=== PATIENT | male | born 1965 | race Caucasian/White ===

== ENCOUNTER 2018-04-07 14:21 | Outpatient (CLI) | payer MEDICARE, OTHER ==
[2018-04-07 15:18] LABS: MEAN CORPUSCULAR HEMOGLOBIN 27.9 pg (28.0-34.0); MEAN CORPUSCULAR VOLUME 85.8 fl (80.0-100.0)
[2018-04-07 17:13] LABS: eGFR (African) > 60; eGFR (Non-African) > 60
== END 2018-04-07 14:22 ==
LOC: LAB 14:21
PROVIDERS: ATTEND Internal Medicine
DX: E11.40 Type 2 diabetes mellitus with diabetic neuropathy, unspecified (principal); K91.30 Postprocedural intestinal obstruction, unspecified as to partial versus complete
CPT/HCPCS: 36415; 80048; 85027